=== PATIENT | female | born 1975 | race Two or more races ===

== ENCOUNTER 2017-09-06 17:21 | Emergency (ER) | payer OTHER ==
[~2017-09-06] VITALS: Ht 160 cm; Wt 60.3 kg
--- NOTE | 2017-09-06 17:25 | NUR ---
PT BIBRA FROM A PARKING LOT. PER REPORT, PT IS HAVING ANXIETY AND PANIC ATTACKS. C/O BUE SPASM. GOWNED AND PLACED ON MONITOR.STABLE VITALS. AWAITING MD BURK.
--- NOTE | 2017-09-06 17:26 | NUR ---
DR OROURKE AT BEDSIDE FOR EVAL.
[2017-09-06] MEDS ORDERED: DIPHENHYDRAMINE HCL 12.5 MG/5 ML UDC PO ONE (17:30)
[2017-09-06] MEDS ORDERED: LORAZEPAM 1 MG TABLET PO ONE (17:30)
[2017-09-06] MEDS ORDERED: LORAZEPAM 1 MG TABLET ONE (17:33)
[2017-09-06] MEDS ORDERED: diphenhydrAMINE HCL 25 MG CAPSULE ONE (17:33)
--- NOTE | 2017-09-06 18:34 | NUR ---
PT APPEARS MORE CALM AND LOOSE. ON MONITOR. STABLE VITALS. WILL COONTINUE TO MONITOR.
--- NOTE | 2017-09-06 18:50 | NUR ---
PT AMBULATORY W STEADY GAIT.
--- NOTE | 2017-09-06 19:01 | NUR ---
Patient discharged to home in stable condition. Written and verbal after care instructions given. Patient verbalizes understanding of instruction.
[2017-09-06 19:04] VITALS: BP 125/64
== END 2017-09-06 19:05 | disposition home or self-care (01) ==
LOC: ER 17:23
DX: F41.9 Anxiety disorder, unspecified (principal)
CPT/HCPCS: 99283; A4606; Q0163 ×2; Z7610